=== PATIENT | female | born 1960 | race Caucasian/White ===

== ENCOUNTER → 2017-01-07 | Outpatient (CLI) | payer BC ==
--- NOTE | 2017-01-07 13:13 | PCVCIMAG ---
APPROVED REPORT Study performed: 01/07/2017 11:27:04 EXAM: Comprehensive 2D, Doppler, and color-flow Echocardiogram Patient Location: Echo lab Status: routine BSA: 1.91 HR: 103 bpmBP: 132/78 mmHg Rhythm: NSR Other Information Study Quality: Adequate Risk Factors: Cardiac Risk Factors: Hyperlipidemia, HTN, Smoking Indications Chest Pressure 2D Dimensions LVEF(%): 61.74 (>50%) IVSd: 11.10 (7-11mm)LVOT Diam: 19.16 (18-24mm) LVDd: 47.02 mm PWd: 13.46 (7-11mm)Ascending Ao: 34.31 (22-36mm) LVDs: 31.42 (25-40mm) Left Atrium: 33.52 (27-40mm) Aortic Root: 26.99 mm LV Single Plane 4CH: 57.18 % LV Single Plane 2CH: 61.02 %Sanchez's LVEF: 59.10 % Volumes Left Atrial Volume (Systole) Single Plane 4CH: 25.15 mLSingle Plane 2CH: 28.21 mL LA ESV Index: 14.00 mL/m2 Mitral Valve E/A Ratio: 0.7 MV Decel. Time: 114.45 ms MV E Max Edin.: 0.67 m/s MV A Edin.: 0.98 m/s IVRT: 83.04 ms TDI E/Lateral E': 13.40E/Medial E': 16.75 Medial E' Edin.: 0.04 m/s Lateral E' Edin.: 0.05 m/s Pulmonary Valve PV Peak Edin.: 1.05 m/sPV Peak Gr.: 4.43 mmHg Tricuspid Valve PA Pressure: 7.00 mmHg Left Ventricle The left ventricle is normal size. There is normal LV segmental wall motion. Mild concentric left ventricular hypertrophy. Left ventricular systolic function is normal. The left ventricular ejection fraction is within the normal range. LVEF is 60-65%. Transmitral Doppler flow pattern suggests impaired LV relaxation. Right Ventricle The right ventricle is normal size. The right ventricular systolic function is normal. Atria The left atrium size is normal. The right atrium size is normal. Aortic Valve The aortic valve is normal in structure. No aortic regurgitation is present. There is no aortic valvular stenosis. Mitral Valve The mitral valve is normal in structure. There is no mitral valve regurgitation noted. No evidence of mitral valve stenosis. Tricuspid Valve The tricuspid valve is normal in structure. There is no tricuspid valve regurgitation noted. Pulmonic Valve The pulmonary valve is normal in structure. There is no pulmonic valvular regurgitation. Great Vessels The aortic root is normal in size. IVC is normal in size and collapses with >50% inspiration Pericardium There is no pericardial effusion. <Conclusion> The left ventricle is normal size. LVEF is 60-65%. The aortic valve is normal in structure. The mitral valve is normal in structure. The tricuspid valve is normal in structure. The pulmonary valve is normal in structure. Transmitral Doppler flow pattern suggests impaired LV relaxation.
== END | disposition home or self-care (01) ==
LOC: PCVCIMAG 09:32
PROVIDERS: ATTEND Internal Medicine
DX: I25.10 Atherosclerotic heart disease of native coronary artery without angina pectoris (principal); I10 Essential (primary) hypertension; E78.5 Hyperlipidemia, unspecified; Z87.891 Personal history of nicotine dependence
CPT/HCPCS: 93306